=== PATIENT | male | born 1995 | race African-American/Black ===

== ENCOUNTER 2018-05-21 11:08 | Emergency (ER) | payer BC, OTHER ==
--- NOTE | 2018-05-21 11:23 | ER Document Report ---
ED Medical Screen (RME) - General Chief Complaint: Shoulder Injury Stated Complaint: SHOULDER PAIN Time Seen by Provider: 05/21/18 11:20 Mode of Arrival: Ambulatory Information source: Patient, [facility] Records Notes: 23-year-old male presents with complaint of left shoulder pain Assubel dislocation. Patient states that just prior to arrival he was laying on the couch when the cat came by causing him to move his arm abruptly. Patient does have a history of dislocation. I have greeted and performed a rapid initial assessment of this patient. A comprehensive ED assessment and evaluation of the patient, analysis of test results and completion of medical decision making process we will be contacted by additional ED providers. General; well-appearing, no acute distress Respiratory; no respiratory distress Musculoskeletal; left shoulder tender to palpation, currently in sling. TRAVEL OUTSIDE OF THE [place] IN LAST 30 DAYS: No - HPI Onset: Just prior to arrival Onset/Duration: Sudden Quality of pain: Throbbing Severity: Moderate Associated Symptoms: None Exacerbated by: Movement Relieved by: Remaining still Similar symptoms previously: Yes Recently seen / treated by doctor: No - Related Data Smoking: Non-smoker Frequency of alcohol use: None Drug Abuse: None Allergies/Adverse Reactions: No Known Drug Allergies Allergy (Verified 05/21/18 11:10) ketamine Adverse Reaction (Verified 05/21/18 11:10) Past Medical History - Immunizations Hx Diphtheria, Pertussis, Tetanus Vaccination: Yes Physical Exam - Vital signs Vitals: Temp Pulse Resp BP Pulse Ox 97.9 F 65 14 131/68 H 98 05/21/18 11:15 05/21/18 11:15 05/21/18 11:15 05/21/18 11:15 05/21/18 11:15 Course - Vital Signs Vital signs: Temp Pulse Resp BP Pulse Ox 97.9 F 65 14 131/68 H 98 05/21/18 11:15 05/21/18 11:15 05/21/18 11:15 05/21/18 11:15 05/21/18 11:15
--- NOTE | 2018-05-21 11:43 | ER Document Report ---
ED General - General Chief Complaint: Shoulder Injury Stated Complaint: SHOULDER PAIN Time Seen by Provider: 05/21/18 11:20 Mode of Arrival: Ambulatory Notes: Patient is a 23-year-old male that presents to the emergency department for chief complaint of left shoulder pain and dislocation. Patient reports having history of recurrent left shoulder dislocations from prior injuries. He states that today he was sitting on the couch and he reached down and backwards and felt the shoulder pop out around 1030 this morning. Currently rates his pain as a 2 out of 10 as long as he does not move his shoulder describes as an aching , constant dull sensation. Worse with any range of motion. He did not take any medication prior to ED arrival. Last meal was at 7 AM this morning. Denies having any numbness, tingling or weakness in his extremity. Past Medical History: Recurrent left shoulder dislocations Past Surgical History: Bilateral shoulder surgeries Social History: Denies tobacco, alcohol or drug use Family History: Reviewed and noncontributory for presenting illness Allergies: Reviewed, see documented allergy list. REVIEW OF SYSTEMS: Unless otherwise stated in this report the patient's positive and negative responses for review of systems for constitutional, eyes, ENT, cardiovascular, respiratory, gastrointestinal, neurological, genitourinary, musculoskeletal, and integumentary systems and related systems to the presenting problem are either as stated in the HPI or were not pertinent or were negative for the symptoms and/or complaints related to the presenting medical problem. PHYSICAL EXAMINATION: Vital signs reviewed, nursing noted reviewed. GENERAL: Well-appearing, well-nourished and appears uncomfortable. HEAD: Atraumatic, normocephalic. EYES: Eyes appear normal, extraocular movements intact, sclera anicteric, conjunctiva are normal. ENT: nares patent, oropharynx clear without exudates. Moist mucous membranes. NECK: Normal range of motion, supple without lymphadenopathy LUNGS: Breath sounds clear to auscultation bilaterally and equal. No wheezes rales or rhonchi. HEART: Regular rate and rhythm without murmurs ABDOMEN: Soft, nontender, normoactive bowel sounds. No rebound, guarding, or rigidity. No masses appreciated. EXTREMITIES: Gross deformity to the left shoulder, squared off, pain with any attempt of range of motion of the left shoulder. Neurovascularly intact distally, good cap refill, muscular motor strength and sensation intact distally. The rest of his extremity exams are grossly unremarkable. Nontender , good range of motion, no pitting or edema. NEUROLOGICAL: No focal neurological deficits. Moves all extremities spontaneously Motor and sensory grossly intact on exam. PSYCH: Normal mood, normal affect. SKIN: Warm, Dry, normal turgor, no rashes or lesions noted on exposed skin TRAVEL OUTSIDE OF THE [place] IN LAST 30 DAYS: No - Related Data Allergies/Adverse Reactions: No Known Drug Allergies Allergy (Verified 05/21/18 11:10) ketamine Adverse Reaction (Verified 05/21/18 11:10) Past Medical History - General Information source: Patient, [facility] Records - Social History Smoking Status: Never Smoker Frequency of alcohol use: None Drug Abuse: None Family History: Reviewed & Not Pertinent Patient has suicidal ideation: No Patient has homicidal ideation: No Renal/ Medical History: Denies: Hx Peritoneal Dialysis - Immunizations Hx Diphtheria, Pertussis, Tetanus Vaccination: Yes Physical Exam - Vital signs Vitals: Temp Pulse Resp BP Pulse Ox 97.9 F 65 14 131/68 H 98 05/21/18 11:15 05/21/18 11:15 05/21/18 11:15 05/21/18 11:15 05/21/18 11:15 Course - Re-evaluation Re-evalutation: Patient seen and examined vital signs reviewed. Patient was evaluated and treated as appropriate for the patient's presenting symptoms and complaint, with consideration of any critical or life threatening conditions that may be associated with their obtained history and exam as noted above. Patient was treated with closed reduction of the left shoulder as noted The patient was re-evaluated and was much improved, not asking or needing any pain medication Evaluation was most consistent with closed left shoulder dislocation, with successful reduction, patient discharged to follow-up with orthopedics in a shoulder immobilizer and given a prescription for naproxen if needed. Plan of care was discussed with the patient at this point, after careful consideration I feel that that patient can be discharged from the emergency department, the patient was educated treatments and reasons to return to the emergency department based on their presumed diagnosis as noted above, they were advised to followup with a primary care physician in 2-3 days. Patient was agreeable to plan of care. *Note is created using voice recognition software and may contain spelling, syntax or grammatical errors. Shoulder X-Ray 05/21/18 13:34 IMPRESSION: Successful reduction. - Vital Signs Vital signs: Temp Pulse Resp BP Pulse Ox 98.3 F 65 16 127/80 H 100 05/21/18 14:50 05/21/18 11:15 05/21/18 14:50 05/21/18 14:50 05/21/18 14:50 Procedures - Conscious Sedation Conscious sedation Consent obtained: Yes Indication: Left shoulder dislocation reduction Last meal: 7 AM Normal healthy pt.: P1. - ASA Classification Airway Evaluation: Normal anatomy Mallampati Classification: Class 1 Used during procedure: Suction available, IV access obtained, Pulse ox on pt., shelter monitor on pt. Medications administered: Musaed Dipgeronimovan - See flow sheet for dosing and times Reversal agents: None I personally performed/intraservice time: Sedation, Procedure, 30 min or less Complications: No Notes: Patient tolerated the procedure - Joint Reduction/Fracture Care Left Shoulder Consent obtained: Yes Conscious sedation: Yes Pre-procedure NV exam: Yes Post-procedure NV exam: Yes Post-reduction x-ray: Joint reduced Reduction attempts: 1 Complications: No Notes: 05/21/18 16:01 Patient tolerated the procedure well, traction countertraction Technique was used, as well as external rotation. Films performed after reduction, demonstrated successful reduction of the glenohumeral joint, patient was placed in a shoulder immobilizer. Discharge - Discharge Clinical Impression: Dislocation, shoulder closed Qualifiers: Encounter type: initial encounter Laterality: left Qualified Code(s): S43.005A - Unspecified dislocation of left shoulder joint, initial encounter Condition: Stable Disposition: HOME, SELF-CARE Instructions: Shoulder Dislocation ([facility]), Sling as Treatment ([facility]) Additional Instructions: Please follow-up with orthopedic surgery, wear the sling as much as possible, for bathing you can take the sling off, but hold your shoulder across her chest when doing so. Prescriptions: Naproxen [Naprosyn] 500 mg PO Q12H PRN #30 tablet PRN Reason: shoulder pain Referrals: SHANTELLE GUTIERREZ MD [ACTIVE STAFF] - Follow up in 3-5 days (orthopedic surgery, call for appointment. )
[2018-05-21] MEDS ORDERED: PROPOFOL INJ 200 MG/20 ML VIAL IV ONE (11:49)
--- NOTE | 2018-05-21 12:11 | RADIOLOGY REPORT (SQ) ---
EXAM DESCRIPTION: SHOULDER LEFT 2 OR MORE VIEWS COMPLETED DATE/TIME: 05/21/2018 11:52 am REASON FOR STUDY: dislocation COMPARISON: None. NUMBER OF VIEWS: Three views. TECHNIQUE: Internal rotation, external rotation, and Y view images acquired of the left shoulder. LIMITATIONS: None. FINDINGS: MINERALIZATION: Normal. BONES: No acute fracture or dislocation. No worrisome bone lesions. JOINTS: There is an anterior dislocation. VISUALIZED LUNGS AND RIBS: No pneumothorax. No rib fracture. SOFT TISSUES: No radiopaque foreign body. OTHER: No other significant finding. IMPRESSION: Anterior dislocation without evidence for fracture. TECHNICAL DOCUMENTATION: JOB ID: [id number] [employer]- All Rights Reserved Reading location - IP/workstation name: [email or web address]
[2018-05-21] MEDS ORDERED: MIDAZOLAM 2 MG/2 ML INJ ONE (13:08)
[2018-05-21] MEDS ORDERED: MIDAZOLAM 2 MG/2 ML INJ IV ONE (13:31)
--- NOTE | 2018-05-21 14:43 | RADIOLOGY REPORT (SQ) ---
EXAM DESCRIPTION: SHOULDER LEFT 2 OR MORE VIEWS COMPLETED DATE/TIME: 05/21/2018 2:26 pm REASON FOR STUDY: POST REDUCTION COMPARISON: None. NUMBER OF VIEWS: One view. TECHNIQUE: An anterior image acquired of the left shoulder. LIMITATIONS: None. FINDINGS: An anterior postreduction image shows that the dislocation has been reduced. IMPRESSION: Successful reduction. TECHNICAL DOCUMENTATION: JOB ID: [id number]- All Rights Reserved Reading location - IP/workstation name: [email or web address]
[2018-05-21 18:44] VITALS: BP 150/99
== END 2018-05-21 15:32 | disposition home or self-care (01) ==
LOC: ER 11:08
PROC: 0RSKXZZ Reposition Left Shoulder Joint, External Approach (ICD-10-PCS; principal; 2018-05-21)
DX: S43.005A Unspecified dislocation of left shoulder joint, initial encounter (principal); X58.XXXA Exposure to other specified factors, initial encounter; Y92.009 Unspecified place in unspecified non-institutional (private) residence as the place of occurrence of the external cause
CPT/HCPCS: 99283; 99153; 99152; 73030; 23650; L3650; J2250; J2704

== ENCOUNTER 2019-04-05 01:22 | Emergency (ER) | payer BC, OTHER ==
[2019-04-05] MEDS ORDERED: ONDANSETRON HCL INJ/PF 4 MG/2 ML SDV IV ONE (01:57)
[2019-04-05] MEDS ORDERED: FENTANYL CITRATE INJ/PF 100 MCG/2 ML AMPUL IV ONE (01:57)
[2019-04-05] MEDS ORDERED: PROPOFOL INJ 200 MG/20 ML VIAL IV ONE (01:57)
--- NOTE | 2019-04-05 02:07 | ER Document Report ---
ED General - General Chief Complaint: Shoulder Pain Stated Complaint: SHOULDER PAIN Time Seen by Provider: 04/05/19 01:56 Mode of Arrival: Ambulatory Information source: Patient, [facility] Records Notes: 24-year-old male with no reported past medical history presents with left shoulder pain. Patient states that he has chronic shoulder dislocations due to previous sports injuries. He has undergone multiple surgical repairs of his labrum and rotator cuff. He states earlier today he was laying down when he reached over to pickle sorter his phone and felt his shoulder pop. TRAVEL OUTSIDE OF THE [place] IN LAST 30 DAYS: No - HPI Onset: Just prior to arrival Onset/Duration: Sudden Quality of pain: Throbbing Severity: Moderate Associated symptoms: Body/muscle aches. denies: Chest pain, Fever, Nausea, Vomiting, Shortness of breath Exacerbated by: Movement Relieved by: Remaining still Similar symptoms previously: Yes Recently seen / treated by doctor: No - Related Data Allergies/Adverse Reactions: No Known Drug Allergies Allergy (Verified 05/21/18 11:10) ketamine Adverse Reaction (Verified 05/21/18 11:10) Past Medical History - General Information source: Patient - Social History Smoking Status: Current Some Day Smoker Cigarette use (# per day): Yes - 5 Smoking Education Provided: Yes - Smoking cessation counseling was provided for 4 minutes at the bedside Frequency of alcohol use: None Drug Abuse: None Lives with: Family, Spouse/Significant other Family History: Reviewed & Not Pertinent Patient has suicidal ideation: No Patient has homicidal ideation: No - Medical History Medical History: Negative Renal/ Medical History: Denies: Hx Peritoneal Dialysis - Immunizations Hx Diphtheria, Pertussis, Tetanus Vaccination: Yes Review of Systems - Review of Systems Notes: REVIEW OF SYSTEMS: CONSTITUTIONAL : Denies fever, chills, or sweats. Denies recent illness. Denies weight loss, recent hospitalizations. EENT: Denies visual changes, eye pain. Denies sore throat, oral lesions, difficulty swallowing. CARDIOVASCULAR: Denies chest pain. Denies palpitations. Denies lower extremity edema. RESPIRATORY: Denies cough. Denies shortness of breath, wheezing. GASTROINTESTINAL: Denies abdominal pain or distention. Denies nausea, vomiting, or diarrhea. Denies blood in vomitus, stools, or per rectum. Denies black, tarry stools. Denies constipation. GENITOURINARY: Denies difficulty urinating, painful urination, frequency, blood in urine, testicular pain or penile discharge. MUSCULOSKELETAL: Denies back or neck pain or stiffness. Denies swelling. SKIN: Denies rash, lesions or sores. HEMATOLOGIC : Denies easy bruising or bleeding. LYMPHATIC: Denies swollen glands. NEUROLOGICAL: Denies confusion or altered mental status. Denies loss of consciousness. Denies dizziness or lightheadedness. Denies headache. Denies weakness or paralysis. Denies problems difficulty with ambulation, slurred speech. Denies sensory loss, numbness, or tingling. Denies seizures. PSYCHIATRIC: Denies anxiety or stress. Denies depression, suicidal ideation, or Physical Exam - Vital signs Vitals: Temp Pulse Resp BP Pulse Ox 97.4 F 53 L 16 123/71 100 04/05/19 01:26 04/05/19 01:26 04/05/19 01:04/05/19 01:04/05/19 01:26 - Notes Notes: PHYSICAL EXAMINATION: GENERAL: Well-appearing, well-nourished and in no acute distress. HEAD: Atraumatic, normocephalic. EYES: Pupils equal round and reactive to light, extraocular movements intact, sclera anicteric, conjunctiva are normal. ENT: Nares patent, oropharynx clear without exudates. Moist mucous membranes. NECK: Normal range of motion, supple without lymphadenopathy LUNGS: Breath sounds clear to auscultation bilaterally and equal. No wheezes rales or rhonchi. HEART: Regular rate and rhythm without murmurs ABDOMEN: Soft, nontender, nondistended abdomen. No guarding, no rebound. No masses appreciated. Musculoskeletal: Normal range of motion, no pitting or edema. No cyanosis. Limited range of motion of the left upper extremity with obvious deformity to the left shoulder. Radial and ulnar pulse intact. Sensation intact. No neuro deficits. NEUROLOGICAL: Cranial nerves grossly intact. Normal speech, normal gait. Normal sensory, motor exams PSYCH: Normal mood, normal affect. SKIN: Warm, Dry, normal turgor, no rashes or lesions noted. Course - Re-evaluation Re-evalutation: 04/05/19 05:13 Shoulder X-Ray 04/05/19 03:04 IMPRESSION: Satisfactory closed reduction of the left shoulder dislocation on this single image without definite acute fracture identified. Temp Pulse Resp BP Pulse Ox 97.7 F 58 L 19 120/71 100 04/05/19 03:51 04/05/19 03:13 04/05/19 03:51 04/05/19 03:51 04/05/19 03:51 24-year-old male with history of chronic shoulder dislocation presents with left shoulder pain after reaching for his phone. Vital signs stable. X-ray does show anterior shoulder dislocation. Procedural sedation using fentanyl and propofol were used for reduction which was successful. Patient was placed in a sling and swath and advised to follow-up with orthopedic surgery. Patient was discharged home in stable condition. Patient was evaluated and treated as appropriate for the patient's presenting symptoms and complaint, with consideration of any critical or life threatening conditions that may be associated with their obtained history and exam as noted above. All results were discussed with patient. Patient provided the opportunity to ask questions, and express concerns. Patient was educated on treatments based on their presumed diagnosis as noted above. At this time we will discharge the patient with return precautions and follow-up recommendations. Verbal discharge instructions given a the bedside. Medication warnings reviewed. Patient is in agreement with this plan and has verbalized understanding of return precautions. After careful consideration I feel that that patient can be safely discharged from the emergency department, they were advised to followup with a primary care physician in 2-3 days. Dictation on this chart was performed using voice recognition software and may result in unintended grammatical, spelling, syntax or errors. - Vital Signs Vital signs: Temp Pulse Resp BP Pulse Ox 97.7 F 58 L 19 120/71 100 04/05/19 03:51 04/05/19 03:13 04/05/19 03:51 04/05/19 03:51 04/05/19 03:51 - Diagnostic Test Radiology reviewed: Image reviewed, Reports reviewed Procedures - Conscious Sedation Conscious sedation Time started: 02:30 Time completed: 03:03 Consent obtained: Yes Prior complications: Procedural sedation Pt with a mild systemic disease.: P2. - ASA Classification. Airway Evaluation: Normal anatomy Mallampati Classification: Class 1 Used during procedure: Suction available, IV access obtained, Pulse ox on pt., campus monitor on pt. Medications administered: Fentanyl, Diprivan Reversal agents: None I personally performed/intraservice time: Sedation, 31-45 min Complications: No - Joint Reduction/Fracture Care Left Shoulder Time completed: 03:04 Consent obtained: Yes Conscious sedation: Yes Pre-procedure NV exam: Yes Post-procedure NV exam: Yes - wnl Post-reduction x-ray: Joint reduced Reduction attempts: 1 Complications: No Discharge - Discharge Clinical Impression: Shoulder dislocation, recurrent Qualifiers: Laterality: left Qualified Code(s): M24.412 - Recurrent dislocation, left shoulder Condition: Good Disposition: HOME, SELF-CARE Instructions: Shoulder Dislocation ([facility]) Additional Instructions: Your shoulder was dislocated today. This was reduced. Please wear the sling as needed for comfort. Follow-up with orthopedic surgery if you have recurrent shoulder dislocations. You should continue to take anti-inflammatories such as ibuprofen 600 mg every 6 hours for pain. Continue to apply ice to the area is much your able. Please return immediately if you develop weakness, numbness, spreading redness from the area, or any other symptoms that are concerning to you. Prescriptions: Naproxen [Naprosyn] 500 mg PO Q12H 7 Days #14 tablet
--- NOTE | 2019-04-05 03:14 | RADIOLOGY REPORT (SQ) ---
EXAM DESCRIPTION: XR SHOULDER 2 OR MORE VIEWS COMPLETED DATE/TME: 04/05/2019 01:56 CLINICAL HISTORY: 24 years, Male, ? Dislocation COMPARISON: 05/21/2018 left shoulder NUMBER OF VIEWS: 3 TECHNIQUE: 3 view left shoulder LIMITATIONS: None. FINDINGS: Anterior inferior shoulder dislocation. Hill-Sachs deformity noted. Soft tissues are unremarkable IMPRESSION: Anterior inferior shoulder dislocation copyright 2010 [employer]- All Rights Reserved
--- NOTE | 2019-04-05 03:50 | RADIOLOGY REPORT (SQ) ---
EXAM: X-ray shoulder one view CLINICAL DATA: 24-year-old female status post reduction TECHNICAL DATA: A single AP x-ray view of the left shoulder was performed on 04/05/2019 at 3:19 AM. COMPARISONS: 04/05/2019 at 2:54 AM FINDINGS: Since the prior study there has been satisfactory closed reduction of the left shoulder dislocation. No definite acute fracture is identified. The surrounding soft tissues are unremarkable.. IMPRESSION: Satisfactory closed reduction of the left shoulder dislocation on this single image without definite acute fracture identified.
[2019-04-05 03:54] VITALS: BP 120/71
== END 2019-04-05 04:03 | disposition home or self-care (01) ==
LOC: ER 01:22
DX: M24.412 Recurrent dislocation, left shoulder (principal); M25.512 Pain in left shoulder; F17.210 Nicotine dependence, cigarettes, uncomplicated; Z71.6 Tobacco abuse counseling
CPT/HCPCS: 23650; 73020; 73030; J3010; J2405; 96374; 99283; 99406; 99152; L3650